=== PATIENT | female | born 1980 | race Caucasian/White ===

== ENCOUNTER 2021-01-20 17:42 | Emergency (ER) | payer MEDICAID, OTHER ==
[~2021-01-20] VITALS: Ht 165.1 cm; Wt 109.7 kg
[~2021-01-20 17:42] MED LIST: ASPI-586 PO; ATOR10TA66 PO; LEVO500T2 PO
[2021-01-20 17:50] VITALS: BP 117/88
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
[2021-01-20] MEDS ORDERED: HYDROcodone/APAP 5 MG/325 MG (LORTAB) TAB PO ONE (18:00)
--- NOTE | 2021-01-20 18:40 | Diagnostic Imaging Report ---
INDICATION: Pain status post injury . COMPARISON: None. FINDINGS: Three views of the right wrist demonstrate no acute fracture or dislocation. There are no focal osseous lesions. No avascular necrosis is seen. The visualized soft tissue structures are unremarkable. The pronator fat pad is not displaced. There are no radiopaque foreign bodies. Multiple well-circumscribed rounded carpal lucencies are noted and likely on the basis of cystic degeneration. IMPRESSION: No acute fracture or dislocation in the right wrist. Dictated by: Dictated on workstation # [id number]
== END 2021-01-20 18:54 | disposition home or self-care (01) ==
LOC: EDUNIT# 17:42 → ER 17:44
DX: S63.501A Unspecified sprain of right wrist, initial encounter (principal); J45.909 Unspecified asthma, uncomplicated; E78.00 Pure hypercholesterolemia, unspecified; Z86.73 Personal history of transient ischemic attack (TIA), and cerebral infarction without residual deficits; Z79.82 Long term (current) use of aspirin; Z79.899 Other long term (current) drug therapy; W50.0XXA Accidental hit or strike by another person, initial encounter
CPT/HCPCS: 73110